=== PATIENT | male | born 1990 | race Caucasian/White ===

== ENCOUNTER 2021-02-18 02:13 | Inpatient (IN) | payer MEDICAID, OTHER ==
[~2021-02-18] VITALS: Ht 182.9 cm; Wt 100.0 kg
[2021-02-18] MEDS ORDERED: LISINOPRIL 10MG TABLET PO ONE (03:15)
[2021-02-18] MEDS ORDERED: AMLODIPINE 10MG TABLET PO ONE (03:15)
[2021-02-18 03:17] LABS: BASOPHILS % 0.6 % (0.0-2.0); EOSINOPHILS % 0.4 % (0.0-5.0); HEMATOCRIT. 42.4 % (42.0-52.0); HEMOGLOBIN. 14.6 g/dL (14.0-18.0); MEAN CORPUSCULAR HEMOGLOBIN 31.4 pg (28.0-32.0); MEAN CORPUSCULAR VOLUME 91.4 fL (80.0-94.0); MEAN PLATELET VOLUME 9.5 fl (7.4-10.4); MONOCYTES % 8.1 % (2.0-8.0); NEUTROPHILS % 68.9 % (40.0-76.0); PLATELET 138 x1000/uL (130-400); RED BLOOD CELL COUNT 4.64 mill/uL (4.7-6.1); RED CELL DISTRIBUTION WIDTH 12.5 % (11.6-14.6)
[2021-02-18 03:42] LABS: CHLORIDE 94 mEq/L (98-107)
[2021-02-18 03:49] LABS: ETHANOL BLOOD < 10 mg/dL
[2021-02-18 04:47] LABS: *AMPHETAMINES SCREEN URINE NEGATIVE (NEGATIVE); *BARBITURATES SCREEN URINE NEGATIVE (NEGATIVE); *BENZODIAZEPINES SCREEN URINE NEGATIVE (NEGATIVE); *COCAINE SCREEN URINE NEGATIVE (NEGATIVE); METHADONE URINE SCREEN NEGATIVE (NEGATIVE)
[2021-02-18 04:48] LABS: CANNABINOID URINE SCREEN PRESUMTIVE POSITIVE (NEGATIVE); OPIATES URINE SCREEN NEGATIVE (NEGATIVE); PHENCYCLIDINE URINE SCREEN NEGATIVE (NEGATIVE)
[2021-02-18] MEDS ORDERED: INSULIN REGULAR (HUMULIN R) 300UNITS/3ML VIAL SUBCUT ONE (05:45)
[2021-02-18] MEDS ORDERED: CLONIDINE 0.2MG TABLET PO ONE (05:45)
[2021-02-18] MEDS ORDERED: ONDANSETRON HCL 4MG/2ML INJ IV PRN (10:15)
[2021-02-18] MEDS ORDERED: ACETAMINOPHEN 325MG TABLET PO PRN (10:15)
[2021-02-18] MEDS ORDERED: DEXTROSE 50% WATER 50ML SYRINGE IV PRN (10:15)
[2021-02-18] MEDS: BLOOD SUGAR DIAGNOSTIC STRIP TEST SCH ×3 (11:30→21:44)
[2021-02-18] MEDS ORDERED: INSULIN GLARGINE UD 100 UNITS/ML SYR SUBCUT NR (11:30)
[2021-02-18] MEDS: INSULIN LISPRO 100 UNITS/ML SUBCUT SCH ×3 (12:00→22:01)
[2021-02-18] MEDS: AMLODIPINE 10MG TABLET PO SCH (13:29)
[2021-02-18] MEDS: LISINOPRIL 20MG TABLET PO SCH (13:55)
[2021-02-18] MEDS: LITHIUM CARBONATE 150 MG CAPSULE PO SCH (14:45)
[2021-02-18] MEDS: VENLAFAXINE HCL 37.5MG SR CAPSULE 24HR PO SCH (14:45)
[2021-02-18] MEDS ORDERED: INSULIN GLARGINE UD 100 UNITS/ML SYR SUBCUT SCH (22:00)
[2021-02-19] MEDS: BLOOD SUGAR DIAGNOSTIC STRIP TEST SCH ×2 (06:31→11:36)
[2021-02-19] MEDS: INSULIN LISPRO 100 UNITS/ML SUBCUT SCH ×4 (06:45→11:34)
[2021-02-19] MEDS ORDERED: LITH300C3 MT (09:22)
[2021-02-19] MEDS ORDERED: INSU100I28 SQ (09:22)
[2021-02-19] MEDS ORDERED: VENL150C2 MT (09:22)
[2021-02-19] MEDS ORDERED: LISI20TA31 MT (09:23)
[2021-02-19] MEDS ORDERED: AMLO10TA80 MT (09:23)
[2021-02-19] MEDS: AMLODIPINE 10MG TABLET PO SCH (09:24)
[2021-02-19] MEDS: LISINOPRIL 20MG TABLET PO SCH (09:24)
[2021-02-19] MEDS: VENLAFAXINE HCL 37.5MG SR CAPSULE 24HR PO SCH (09:24)
[2021-02-19] MEDS: LITHIUM CARBONATE 150 MG CAPSULE PO SCH (09:25)
[2021-02-19] MEDS ORDERED: INSULIN GLARGINE UD 100 UNITS/ML SYR SUBCUT SCH (11:00)
[2021-02-19 12:02] VITALS: BP 144/97
== END 2021-02-19 14:02 | disposition home or self-care (01) | DRG 199 ==
LOC: ER 02:13 → MICUSO 05:37
PROVIDERS: ADMIT Internal Medicine; ATTEND Internal Medicine
DX: I16.0 Hypertensive urgency (principal); E87.1 Hypo-osmolality and hyponatremia; F20.0 Paranoid schizophrenia; E11.65 Type 2 diabetes mellitus with hyperglycemia; F17.200 Nicotine dependence, unspecified, uncomplicated; I10 Essential (primary) hypertension; Z82.49 Family history of ischemic heart disease and other diseases of the circulatory system; Z91.14 Patient's other noncompliance with medication regimen; Z91.19 Patient's noncompliance with other medical treatment and regimen; F12.90 Cannabis use, unspecified, uncomplicated
CPT/HCPCS: 36415; 71045; 80053; 80178; 80305; 80320; 82962; 83036; 85025; 93005; 99291; J1815; G0480